=== PATIENT | female | born 1990 | race Asian ===

== ENCOUNTER 2024-10-30 13:39 | Emergency (ER) | payer BC, SELFPAY ==
[2024-10-30 13:48] VITALS: BP 122/74; PULSE 77; RESP 18; TEMP 36.7; O2SAT 98
--- NOTE | 2024-10-30 14:15 | ED.GENADUL_ITS ---
Discharge Plan Disposition Patient Disposition: Home Condition: Stable Discharge Details Clinical Impression: Laceration of knee Primary Care Provider: [facility] ED Provider: Kecia Young Home Meds and New Rx's Prescriptions: No Action sertraline [Zoloft] 25 mg tablet 25 mg PO DAILY Discharge Instructions Instructions: Laceration Repair With Stitches ED Additional Instructions: You were seen in the emergency department today for evaluation of a knee injury, you sustained a laceration just underneath your right knee. In our department notable physical examination performed, had x-ray imaging that did not show any fractures, foreign bodies, or other concerning changes. You had 8 sutures placed in your knee, these need to be removed in about 10 days. Please perform wound care 1-2 times per day, keep the area clean using a gentle soap and water rinse, pat dry, and reapply your mupirocin ointment. If you have difficulty obtaining this medicine an ooqd-[id number] antibiotic ointment is appropriate. You can use Tylenol and ibuprofen as needed for pain or swelling. Please avoid excessive ranging of the knee that could pull the stitches out. Please follow- up with your primary care provider in the next few days to discuss this visit and any symptoms that change, worsen, or persist. Thank you for allowing us to be part of your care. HPI General Mode of arrival: ambulatory . Date/Time Provider Initiated Documentation: 10/30/24 14:01 . Limitations to Documentation: no limitations . Information obtained by: patient, family and old records reviewed . HPI Narrative: This is a 34-year-old female patient without significant past medical history who is presenting for evaluation of a knee laceration after a fall. The patient reports that she was in her normal state of health, was walking in [place] with her dog and tripped, falling onto her right knee. She reports that she did not strike her head, lose consciousness, or any other part of her body. She states that she was actually having more pain in her right reynolds, where she has a large bruise/hematoma, but noted that she had a laceration just inferior to her right knee. She washed out thoroughly with a neighbors hose, and presented for evaluation. She reports that she is able to range the knee and bear weight, though she does have some pain in the right knee and right reynolds still. No numbness, tingling, or weakness distal to the injury. Last tetanus shot 2 years ago. Related Data Home Medications ?Medication ?Instructions ?Recorded ?Confirmed sertraline 25 mg tablet (Zoloft) 25 mg PO DAILY 10/30/24 Allergies Allergy/AdvReac Type Severity Reaction Status Date / Time tuberculin,PPD,multi-puncture Allergy Intermediate hives Verified 10/30/24 13:45 sulfamethoxazole (From Allergy Mild Hives Verified 10/30/24 13:45 Bactrim) trimethoprim (From Bactrim) Allergy Mild Hives Verified 10/30/24 13:45 General Stated Complaint: Orthopedic YAZMIN: 3 Exam Narrative Exam Narrative: Gen: Awake and alert, in no apparent distress HEENT: Non-icteric sclera Neck: Supple Lungs: No apparent respiratory distress, normal respiratory effort. CV: Appears well perfused Abdomen: Non-distended MSK: Moves 4 extremities without apparent limitation in ROM. The patient does h ave an approximately 4 cm laceration, well-approximated just inferior to the right knee. Full range of motion of the knee with some tenderness at the inferior aspect of the patella. She also has a an approximately 3 cm hematoma overlying the anterior aspect of the right mid reynolds. No deformity or crepitus, patient has full CSM's distal to this injury with strong DP pulses. Skin: Visualized skin without rashes, cyanosis. Neuro: Normal Gait, no obvious focal deficits or facial asymmetry. Speaks in full, clear sentences. Psych: Appropriate for situation. Course Vital Signs Vital signs: Vital Signs Temperature 36.7 C 10/30/24 13:48 Pulse 77 10/30/24 13:48 Respiratory Rate 18 10/30/24 13:48 Blood Pressure 122/74 10/30/24 13:48 Pulse Oximetry 98 10/30/24 13:48 Temperature 36.7 C 10/30/24 13:48 Temperature Source Oral 10/30/24 13:48 Pulse 77 10/30/24 13:48 Respiratory Rate 18 10/30/24 13:48 Blood Pressure 122/74 10/30/24 13:48 Pulse Oximetry 98 10/30/24 13:48 Oxygen Delivery Method Room Air 10/30/24 13:48 Oxygen Flow Rate 0 10/30/24 13:48 Pain Level 5 10/30/24 13:54 Lab/Test Results Lab/Test Results: POC- Test(urine) Negative Procedure Laceration Laceration 1: Date of Procedure: 10/30/24 Time of procedure: 15:30 Provider that performed the procedure: Kecia Young Patient Consented: Verbally Site: lower extremity Side (If applicable): right Description: linear Depth: simple, single layer Local anesthetic: Lidocaine 2% and with Epi Amount of anesthesia used (mL): 5 Pre-repair:: wound explored, irrigated extensively and deep structures intact Skin layer closed with: nylon Suture size: 4-0 Number of sutures:: 8 Technique: simple, interrupted Complications: None Medical Decision Making This is a 34-year-old female patient presenting for evaluation of any injury. Differential includes but is not limited to laceration, fracture, dislocation, contusion and hematoma. I certainly considered intra-articular involvement, though the location of the laceration is slightly inferior, and is quite shallow, and I have a lower concern for this pathology at this time. No evidence for neurovascular derangement. We will obtain x-ray imaging of the affected knee and reynolds to evaluate for fracture, intra-articular air, and foreign body. At this time the patient does not require any medications for management of pain. - I independently interpreted the patient's x-ray imaging, I note no fractures or dislocations, nor deep foreign bodies. I do not appreciate any intra- articular air, and I am reassured that the patient's joint capsule has not been violated. Laceration was repaired as noted above, patient was counseled on wound care and a prescription for mupirocin was provided given the potential for agricultural contamination of the water she was in. At this time, the patient has had a full medical evaluation and is safe for discharge to home. They are hemodynamically stable, ambulatory, and tolerating PO. They are understanding of the follow-up plan and return precautions. They left our facility without incident. Kecia Young MD [facility] All Active Problems (Updated 10/30/24 @ 15:20 by Kecia Young MD) Laceration of knee (Acute) Social History Smoking/Tobacco Use Status: Never Smoking risk assessment performed?: Yes Alcohol Intake: never Drug use: Never Substance use type: does not use Do you feel safe at home: Yes Do you feel safe in your relationship?: Yes
--- NOTE | 2024-10-30 14:42 | DI.RAD_ITS ---
Exam(s) XR TIB/FIB RT EXAM: XR TIB/FIB RT CLINICAL HISTORY: ant bruising/swelling after fall. TECHNIQUE: 2D digital imaging was performed. Two views. COMPARISON: CR,XR XR KNEE RT 4V AP,LAT,MARKUS,PAT from 10/30/2024 FINDINGS: BONES: No acute fracture is present. No bony destructive lesion is seen. Visualized portion of knee and ankle joints are unremarkable. SOFT TISSUE: Minimal debris superficially in the soft tissues anterior to the patella. IMPRESSION: Unremarkable radiographs of the right tibia and fibula. DATA REPOSITORY: RADIATION DOSE DELIVERED:
--- NOTE | 2024-10-30 14:44 | DI.RAD_ITS ---
Exam(s) XR KNEE RT 4V AP,LAT,MARKUS,PAT EXAM: XR KNEE RT 4V AP,LAT,MARKUS,PAT CLINICAL HISTORY: [place] onto knee cap, eval fx, FB. TECHNIQUE: 2D digital imaging was performed. Four views. COMPARISON: No exams were available for comparison FINDINGS: BONES: No acute fracture is present. No bony destructive lesion is seen. JOINTS: The knee is normally aligned. No joint effusion is seen. The patellofemoral joint space is suboptimally profiled on the merchant's view. SOFT TISSUE: Normal. IMPRESSION: Unremarkable radiographs of the right knee. The preliminary [facility] report was reviewed. DATA REPOSITORY: RADIATION DOSE DELIVERED:
[2024-10-30 15:29] VITALS: BP 116/63; PULSE 72; RESP 16; O2SAT 98
[2024-10-30] MEDS: Lidocaine 2% Multi-Dose W/EPI 1/100,000 20 ML VIAL IJ (15:29)
--- NOTE | 2024-10-30 16:19 | DI.[facility]AD_ITS ---
PROCEDURE INFORMATION: Exam: XR Right Tibia and Fibula Exam date and time: 10/30/2024 2:45 PM Age: 34 years old Clinical indication: Injury or trauma; Blunt trauma; Lower leg; Right; Injury details: Ant bruising/swelling after fall TECHNIQUE: Imaging protocol: Radiologic exam of the right tibia and fibula. Views: 2 views. COMPARISON: CR XR KNEE RT 4V AP,LAT,MARKUS,PAT 10/30/2024 2:40 PM FINDINGS: Bones/joints: Normal. Soft tissues: Normal. IMPRESSION: No evidence for fracture. Dictated and Authenticated by: Erika Rodríguez MD. Orderin [facility] Jose Mcdonnell MD
--- NOTE | 2024-10-30 16:23 | DI.[facility]AD_ITS ---
PROCEDURE INFORMATION: Exam: XR Left Knee Exam date and time: 10/30/2024 2:40 PM Age: 34 years old Clinical indication: Injury or trauma; Blunt trauma; Right; Injury details: Fall [place] onto knee cap, eval FX, fb TECHNIQUE: Imaging protocol: Radiologic exam of the left knee. Views: 4 or more views. COMPARISON: No relevant prior studies available. FINDINGS: Bones/joints: Normal. Soft tissues: Normal. IMPRESSION: No evidence for fracture. Dictated and Authenticated by: Erika Rodríguez MD. Orderin [facility] Jose Mcdonnell MD
== END 2024-10-30 15:29 | disposition home or self-care (01) ==
LOC: ER 16:57
PROVIDERS: Emergency Provider Emergency Medicine
DX: S81.011A Laceration without foreign body, right knee, initial encounter (principal); W19.XXXA Unspecified fall, initial encounter
CPT/HCPCS: 99283; 99284; 12002; 81025; 73564; 73590; J2004